=== PATIENT | male | born 1965 | race Asian ===

== ENCOUNTER 2021-01-27 06:44 | Inpatient (IN) | payer SELFPAY ==
[2021-01-27] MEDS ORDERED: IPRATROPIUM 0.02% NEBU 2.5 ML IH ONE (07:36)
[2021-01-27] MEDS ORDERED: ALBUTEROL 2.5 MG/3 ML NEBU IH ONE (07:36)
--- NOTE | 2021-01-27 07:49 | Emergency Department Report ---
HPI - General Time Seen by Provider: 01/27/21 07:19 - HPI HPI: Room 17 The patient is a 56-year-old male present with a chief complaint of shortness of breath. Patient has history of COPD but states he is not on home O2. Patient reportedly developed shortness of breath 1.5 hours prior to arrival and EMS was called. EMS states they arrived on scene to find the patient diaphoretic and hypoxic to 67% on room air. The patient had taken multiple albuterol nebs at home without any improvement. EMS placed patient on CPAP administer albuterol, magnesium sulfate 2 g and Solu-Medrol 125 mg prior to arrival. Patient admits to an occasional cough that is nonproductive. Patient denies history of fever. The patient states he received his first [employer] Covid vaccination 01/23/2021 ED Past Medical Hx - Past Medical History Previous Medical History?: Yes Hx Hypertension: Yes Hx COPD: Yes (No home O2) - Surgical History Additional Surgical History: bilateral rods in femurs - Family History Family history: no significant - Social History Smoking Status: Current Every Day Smoker (1 pack/day) Substance Use Type: None (Denies illicit drug use), Alcohol (Occasional) - Medications Home Medications: Home Medications Medication Instructions Recorded Confirmed Last Taken Type Budesonide [Pulmicort Respules] 0.5 mg IH Q12HRT #1 nebu 12/14/19 Unknown Rx Ipratropium/Albuterol Sulfate 1 ampul IH TIDRT #1 ampul.neb 12/14/19 Unknown Rx [DUONEB *Not for PRN Use*] amLODIPine 10 mg PO DAILY #30 tablet 12/14/19 Unknown Rx hydrALAZINE [Apresoline TAB] 50 mg PO Q8HR #60 tablet 12/14/19 Unknown Rx levoFLOXacin [Levaquin TAB] 750 mg PO Q24HR #7 tablet 12/14/19 Unknown Rx predniSONE 10 mg PO QDAY 1 Days #60 tablet 12/14/19 Unknown Rx ED Review of Systems ROS: Stated complaint: PORSCHE Other details as noted in HPI Constitutional: denies: fever Eyes: denies: eye pain ENT: denies: throat pain Respiratory: cough, shortness of breath Cardiovascular: denies: chest pain Endocrine: no symptoms reported Gastrointestinal: denies: abdominal pain Genitourinary: denies: dysuria Musculoskeletal: denies: back pain Neurological: denies: headache Physical Exam - Physical Exam Physical Exam: GENERAL: The patient is well-developed well-nourished male lying on stretcher not appearing to be in acute distress with CPAP in place. [] HEENT: Normocephalic. Atraumatic. Extraocular motions are intact. Patient has moist mucous membranes. NECK: Supple. Trachea midline CHEST/LUNGS: Diminished throughout. HEART/CARDIOVASCULAR: Regular. There is no tachycardia. There is no gallop rub or murmur. ABDOMEN: Abdomen is soft, nontender. Patient has normal bowel sounds. There is no abdominal distention. SKIN: There is no rash. There is no edema. There is no diaphoresis. NEURO: The patient is awake, alert, and oriented. The patient is cooperative. The patient has no focal neurologic deficits. The patient has normal speech. GCS 15 MUSCULOSKELETAL: There is no evidence of acute injury. ED Medical Decision Making - Lab Data Result diagrams: 01/27/21 08:25 01/27/21 08:25 Laboratory Tests 01/27/21 01/27/21 01/27/21 08:25 08:25 08:25 WBC 12.6 H RBC 4.67 Hgb 14.4 Hct 41.5 MCV 89 MCH 31 MCHC 35 H RDW 14.1 Plt Count 204 Lymph % (Auto) 5.7 L [place] % (Auto) 4.5 Eos % (Auto) 0.8 Baso % (Auto) 0.6 Lymph # (Auto) 0.7 L [place] # (Auto) 0.6 Eos # (Auto) 0.1 Baso # (Auto) 0.1 Seg Neutrophils % 88.4 H Seg Neutrophils # 11.2 H PT 13.5 INR 0.97 Sodium 138 Potassium 3.7 Chloride 95.1 L Carbon Dioxide 26 Anion Gap 21 BUN 12 Creatinine 0.8 Estimated GFR > 60 BUN/Creatinine Ratio 15 Glucose 94 Calcium 9.5 Troponin T 0.017 NT-Pro-B Natriuret Pep 874.3 - Radiology Data Radiology results: report reviewed (Chest x-ray), image reviewed (Chest x-ray) interpreted by me: Chest x-ray-no focal infiltrates, no pneumothorax [facility] [address] [place] [address] XRay Report Signed Patient: ALTAGRACIA PERES MR#: [id number] 30 : 1965 Acct:[id number] Age/Sex: 56 / M ADM Date: 01/27/21 Loc: ED Attending Dr: Ordering Physician: BETHANY SMITH MD Date of Service: 01/27/21 Procedure(s): XR chest 1V ap Accession Number(s): [id number] cc: BETHANY SMITH MD Fluoro Time In Minutes: . XR chest 1V ap INDICATION / CLINICAL INFORMATION: Shortness of breath. COMPARISON: 12/12/2019 FINDINGS: SUPPORT DEVICES: None. HEART /PULMONARY VASCULATURE: No significant abnormality. LUNGS / PLEURA: No significant pulmonary or pleural abnormality. No pneumothorax. ADDITIONAL FINDINGS: No significant additional findings. IMPRESSION: 1. No acute findings. Signer Name: Manohar Moffett MD Signed: 01/27/2021 9:08 AM Workstation Name: [id number] Transcribed By: JS Dictated By: MANOHAR MOFFETT MD Electronically Authenticated By: MANOHAR MOFFETT MD Signed Date/Time: 01/27/21907 DD/ 6 TD/TT: Print Cancel - Differential Diagnosis COPD exacerbation, bronchitis, pneumonia Critical care attestation.: If time is entered above; I have spent that time in minutes in the direct care of this critically ill patient, excluding procedure time. ED Disposition Clinical Impression: COPD exacerbation, Hypoxia Disposition: ADMITTED INPATIENT Is pt being admited?: Yes Does the pt Need Aspirin: Yes Condition: Stable Instructions: Chronic Obstructive Pulmonary Disease (ED) Time of Disposition: 10:15 (Hospitalist notified (Dr Wray))
[2021-01-27] MEDS ORDERED: IPRATROPIUM/ALBUTEROL SULFATE 3 ML AMPUL.NEB IH ONE (08:00)
--- NOTE | 2021-01-27 09:12 | XRay Report ---
. XR chest 1V ap INDICATION / CLINICAL INFORMATION: Shortness of breath. COMPARISON: 12/12/2019 FINDINGS: SUPPORT DEVICES: None. HEART /PULMONARY VASCULATURE: No significant abnormality. LUNGS / PLEURA: No significant pulmonary or pleural abnormality. No pneumothorax. ADDITIONAL FINDINGS: No significant additional findings. IMPRESSION: 1. No acute findings. Signer Name: Se Moffett MD Signed: 01/27/2021 9:08 AM Workstation Name: [id number]
[2021-01-27 09:47] LABS: Basophils # (Auto) 0.1 K/mm3 (0.0-0.1); Basophils % (Auto) 0.6 % (0.0-1.8); Eosinophils # (Auto) 0.1 K/mm3 (0.0-0.4); Eosinophils % (Auto) 0.8 % (0.0-4.3); Hematocrit 41.5 % (35.5-45.6); Hemoglobin 14.4 gm/dl (11.8-15.2); Lymphocytes # (Auto) 0.7 K/mm3 (1.2-5.4); Lymphocytes % (Auto) 5.7 % (13.4-35.0); Mean Corpuscular HGB Conc 35 % (32-34); Mean Corpuscular Volume 89 fl (84-94); Monocytes # (Auto) 0.6 K/mm3 (0.0-0.8); Monocytes % (Auto) 4.5 % (0.0-7.3); Platelet Count 204 K/mm3 (140-440); Red Blood Count 4.67 M/mm3 (3.65-5.03); Red Cell Distribution Width 14.1 % (13.2-15.2)
[2021-01-27 09:55] LABS: BUN/Creatinine Ratio 15; Blood Urea Nitrogen 12 mg/dL (9-20); Calcium 9.5 mg/dL (8.4-10.2); Hemolysis Index 1
[2021-01-27 09:58] LABS: INR 0.97 (0.87-1.13)
[2021-01-27] MEDS ORDERED: ASPIRIN 325 MG TAB PO ONE (10:13)
[2021-01-27 11:26] LABS: ABG Base Excess -2.9 mmol/L (-2.0-3.0); ABG HCO3 21.2 mmol/L (20.0-26.0); ABG Methemoglobin 0.7 % (0.0-1.5); ABG Oxygen Saturation 99.5 % (95.0-99.0); ABG PCO2 35.3 mm Hg; ABG PH 7.397 pH Units (7.350-7.450)
[2021-01-27 11:32] LABS: ABG PO2 294.4 mm Hg (80.0-90.0)
[2021-01-27] MEDS ORDERED: hydrALAZINE 20 MG/1 ML INJ IV ONE (12:24)
--- NOTE | 2021-01-27 13:28 | History and Physical Report ---
History of Present Illness Date of examination: 01/27/21 Date of admission: 01/27/21 10:16 Chief complaint: Worsening shortness of breath, acute hypoxic respiratory failure of 1 day duration History of present illness: 56-year-old -Guyanese male patient with significant past medical history of COPD not on home oxygen hypertension, chronic tobacco use, alcohol use presented to the emergency room with worsening shortness of breath about 1 to 2 hours prior to the EMS was called Patient reports that he took albuterol treatments with no improvement. Patient was severely hypoxemic on room air when EMS arrived saturating 67 to 68% No improvement with multiple nebulizers treatments, placed on CPAP and brought to the emergency room and severe respiratory distress. Patient received first [employer] Covid vaccination on 01/23/2021. Initial evaluation is consistent with severe hypoxic respiratory failure due to COPD exacerbation Chest x-ray no acute abnormality noted, chemistries mild leukocytosis. Patient denies any chest pain, no nausea vomiting or abdominal pain Patient has no home oxygen Past History Past Medical History: COPD, hypertension Past Surgical History: Other (Bilateral femoral surgery with rods) Social history: smoking, full code. denies: alcohol abuse, prescription drug abuse Family history: no significant family history Medications and Allergies Allergies Allergy/AdvReac Type Severity Reaction Status Date / Time No Known Allergies Allergy Verified 12/11/19 20:38 Home Medications Medication Instructions Recorded Confirmed Last Taken Type Budesonide [Pulmicort Respules] 0.5 mg IH Q12HRT #1 nebu 12/14/19 Unknown Rx Ipratropium/Albuterol Sulfate 1 ampul IH TIDRT #1 ampul.neb 12/14/19 Unknown Rx [DUONEB *Not for PRN Use*] amLODIPine 10 mg PO DAILY #30 tablet 12/14/19 Unknown Rx hydrALAZINE [Apresoline TAB] 50 mg PO Q8HR #60 tablet 12/14/19 Unknown Rx levoFLOXacin [Levaquin TAB] 750 mg PO Q24HR #7 tablet 12/14/19 Unknown Rx predniSONE 10 mg PO QDAY 1 Days #60 tablet 12/14/19 Unknown Rx Review of Systems Constitutional: fatigue, weakness Ears, nose, mouth and throat: no nasal congestion, no nasal discharge Cardiovascular: lightheadedness, shortness of breath, no chest pain, no orthopnea Respiratory: shortness of breath, dyspnea on exertion, wheezing Gastrointestinal: no abdominal pain, no nausea, no vomiting Genitourinary Male: no dysuria, no hematuria Musculoskeletal: no myalgias, no arthritis Integumentary: no rash, no lesions Neurological: no seizures, no syncope Psychiatric: no anxiety, no depression Endocrine: no cold intolerance, no heat intolerance Hematologic/Lymphatic: no easy bruising, no easy bleeding Allergic/Immunologic: no urticaria, no allergic rhinitis Exam - Constitutional Vitals: Temp Pulse Resp BP Pulse Ox 98.0 F 94 H 170/121 100 01/27/21 07:46 01/27/21 12:38 01/27/21 12:39 01/27/21 12:38 General appearance: Present: severe distress, well-nourished - EENT Eyes: Present: PERRL, EOM intact - Neck Neck: Present: supple, normal ROM - Respiratory Respiratory effort: normal Respiratory: bilateral: diminished, rhonchi, wheezing, negative: rales - Cardiovascular Rhythm: regular Heart Sounds: Present: S1 & S2 - Extremities Extremities: no ischemia, No edema - Abdominal General gastrointestinal: Present: soft, non-tender, non-distended, normal bowel sounds - Integumentary Integumentary: Present: clear, warm - Musculoskeletal Musculoskeletal: strength equal bilaterally, generalized weakness - Psychiatric Psychiatric: appropriate mood/affect, cooperative - Neurologic Neurologic: moves all extremities HEART Score - HEART Score Troponin: Troponin T 0.017 ng/mL (0.00-0.029) 01/27/21 08:25 Results - Labs CBC & Chem 7: 01/27/21 08:25 01/27/21 08:25 Labs: Abnormal lab results 01/27/21 01/27/21 01/27/21 Range/Units 08:25 08:25 11:15 WBC 12.6 H (4.5-11.0) K/mm3 MCHC 35 H (32-34) % Lymph % (Auto) 5.7 L (13.4-35.0) % Lymph # (Auto) 0.7 L (1.2-5.4) K/mm3 Seg Neutrophils % 88.4 H (40.0-70.0) % Seg Neutrophils # 11.2 H (1.8-7.7) K/mm3 ABG pO2 294.4 H (80.0-90.0) mm Hg ABG O2 Saturation 99.5 H (95.0-99.0) % ABG Base Excess -2.9 L (-2.0-3.0) mmol/L Chloride 95.1 L (98-107) mmol/L Assessment and Plan --Acute COPD exacerbation; Oxygen titrate O2 sats to more than 90% Nebulizers, IV steroids IV antibiotics, inhalation steroids Supportive care Pulmonary consult if needed --Acute hypoxic respiratory failure; Secondary to COPD exacerbation Oxygen titrate O2 sats more than 90% IV steroids, nebulizers, IV antibiotics, inhalation steroids --Hypertension; Moderate control, continue current antihypertensives As needed medications --Ongoing tobacco use; Smoking cessation counseling Nicotine patch as needed --DVT prophylaxis; Lovenox --History of alcohol use; Closely monitor for any withdrawal symptoms CIWA protocols if needed We will closely monitor the patient and adjust the management as needed Plan of care reviewed with the patient and his nurse
[2021-01-27] MEDS ORDERED: ONDANSETRON 4 MG/2 ML INJ IV PRN (13:35)
[2021-01-27] MEDS ORDERED: ACETAMINOPHEN 325 MG TAB PO PRN (13:35)
[2021-01-27] MEDS: hydrALAZINE 25 MG TAB PO SCH ×2 (15:06→22:50)
[2021-01-27] MEDS: methylPREDNISolone Sod Succinate 125 MG/2 ML INJ IV SCH (15:06)
[2021-01-27] MEDS: IPRATROPIUM/ALBUTEROL SULFATE 3 ML AMPUL.NEB IH SCH (16:21)
[2021-01-27] MEDS ORDERED: hydrALAZINE 20 MG/1 ML INJ IV PRN (19:26)
[2021-01-27] MEDS: ENOXAPARIN 40 MG/0.4 ML INJ SUB-Q SCH (22:49)
[2021-01-28] MEDS: IPRATROPIUM/ALBUTEROL SULFATE 3 ML AMPUL.NEB IH SCH ×5 (01:45→20:07)
[2021-01-28] MEDS: BUDESONIDE 0.5 MG/2 ML NEBU IH SCH ×3 (01:46→20:08)
[2021-01-28] MEDS: methylPREDNISolone Sod Succinate 125 MG/2 ML INJ IV SCH ×4 (04:50→22:24)
[2021-01-28] MEDS: NIFEdipine XL 30 MG TAB PO SCH ×3 (04:50→22:24)
[2021-01-28] MEDS: FAMOTIDINE 20 MG TAB PO SCH ×3 (04:51→22:23)
[2021-01-28] MEDS: hydrALAZINE 25 MG TAB PO SCH ×3 (07:25→22:24)
[2021-01-28] MEDS: amLODIPine 10 MG TAB PO SCH (10:41)
--- NOTE | 2021-01-28 16:47 | Progress Note ---
Assessment and Plan Assessment and plan: --Acute on chronic hypoxic respiratory failure; Secondary to COPD exacerbation Patient is home oxygen dependent Oxygen titrate O2 sats more than 90% Tapering IV steroids, nebulizers, IV antibiotics, inhalation steroids Supportive care --Acute COPD exacerbation; Oxygen titrate O2 sats to more than 90% Nebulizers, IV steroids, IV antibiotics, inhalation steroids, Supportive care Pulmonary consult if needed --Hypertension; Moderate control, continue current antihypertensives As needed hydralazine --Ongoing tobacco use; Smoking cessation counseling Nicotine patch as needed --DVT prophylaxis; subcu Lovenox --History of alcohol use; Closely monitor for any withdrawal symptoms CIWA protocols if needed We will closely monitor the patient and adjust the management as needed Plan of care reviewed with the patient and his nurse Brief history; 56-year-old male patient with significant past medical history of COPD hypertension ongoing tobacco use was admitted through emergency room With acute respiratory failure with hypoxia, patient is home oxygen dependent, patient started on nebulizers IV steroids IV antibiotics inhalation steroids and supportive care Symptoms slightly improved today. Ambulate as tolerated, possible discharge home tomorrow if stable Case management to assist with discharge planning History Interval history: I have seen and examined the patient at the bedside patient's chart and medications reviewed patient complains of mild shortness of breath significantly improved since yesterday Hospitalist Physical - Constitutional Vitals: Temp Pulse Resp BP Pulse Ox 98.2 F 108 H 20 154/100 95 01/28/21 07:34 01/28/21 14:25 01/28/21 14:25 01/28/21 07:34 01/28/21 07:56 General appearance: Present: no acute distress, well-nourished - EENT Eyes: Present: PERRL, EOM intact - Neck Neck: Present: supple, normal ROM - Respiratory Respiratory effort: normal Respiratory: bilateral: diminished, negative: rales, rhonchi, wheezing - Cardiovascular Rhythm: regular Heart Sounds: Present: S1 & S2 - Extremities Extremities: no ischemia, No edema - Abdominal General gastrointestinal: soft, non-tender, non-distended, normal bowel sounds - Integumentary Integumentary: Present: clear, warm - Psychiatric Psychiatric: appropriate mood/affect, cooperative - Neurologic Neurologic: CNII-XII intact, moves all extremities HEART Score - HEART Score Troponin: Troponin T 0.017 ng/mL (0.00-0.029) 01/27/21 08:25 Results - Labs CBC & Chem 7: 01/27/21 08:25 01/27/21 08:25 Labs: Laboratory Last Values WBC 12.6 K/mm3 (4.5-11.0) H 01/27/21 08:25 RBC 4.67 M/mm3 (3.65-5.03) 01/27/21 08:25 Hgb 14.4 gm/dl (11.8-15.2) 01/27/21 08:25 Hct 41.5 % (35.5-45.6) 01/27/21 08:25 MCV 89 fl (84-94) 01/27/21 08:25 MCH 31 pg (28-32) 01/27/21 08:25 MCHC 35 % (32-34) H 01/27/21 08:25 RDW 14.1 % (13.2-15.2) 01/27/21 08:25 Plt Count 204 K/mm3 (140-440) 01/27/21 08:25 Lymph % (Auto) 5.7 % (13.4-35.0) L 01/27/21 08:25 [place] % (Auto) 4.5 % (0.0-7.3) 01/27/21 08:25 Eos % (Auto) 0.8 % (0.0-4.3) 01/27/21 08:25 Baso % (Auto) 0.6 % (0.0-1.8) 01/27/21 08:25 Lymph # (Auto) 0.7 K/mm3 (1.2-5.4) L 01/27/21 08:25 [place] # (Auto) 0.6 K/mm3 (0.0-0.8) 01/27/21 08:25 Eos # (Auto) 0.1 K/mm3 (0.0-0.4) 01/27/21 08:25 Baso # (Auto) 0.1 K/mm3 (0.0-0.1) 01/27/21 08:25 Seg Neutrophils % 88.4 % (40.0-70.0) H 01/27/21 08:25 Seg Neutrophils # 11.2 K/mm3 (1.8-7.7) H 01/27/21 08:25 PT 13.5 Sec. (12.2-14.9) 01/27/21 08:25 INR 0.97 (0.87-1.13) 01/27/21 08:25 ABG pH 7.397 pH Units (7.350-7.450) 01/27/21 11:15 ABG pCO2 35.3 mm Hg 01/27/21 11:15 ABG pO2 294.4 mm Hg (80.0-90.0) H 01/27/21 11:15 ABG HCO3 21.2 mmol/L (20.0-26.0) 01/27/21 11:15 ABG O2 Saturation 99.5 % (95.0-99.0) H 01/27/21 11:15 ABG O2 Content 20.4 (0.0-44) 01/27/21 11:15 ABG Base Excess -2.9 mmol/L (-2.0-3.0) L 01/27/21 11:15 ABG Hemoglobin 14.3 gm/dl (14.0-18.0) 01/27/21 11:15 ABG Carboxyhemoglobin 1.1 % (0.0-5.0) 01/27/21 11:15 ABG Methemoglobin 0.7 % (0.0-1.5) 01/27/21 11:15 Oxyhemoglobin 97.8 % (95.0-99.0) 01/27/21 11:15 FiO2 90 % 01/27/21 11:15 Sodium 138 mmol/L (137-145) 01/27/21 08:25 Potassium 3.7 mmol/L (3.6-5.0) 01/27/21 08:25 Chloride 95.1 mmol/L (98-107) L 01/27/21 08:25 Carbon Dioxide 26 mmol/L (22-30) 01/27/21 08:25 Anion Gap 21 mmol/L 01/27/21 08:25 BUN 12 mg/dL (9-20) 01/27/21 08:25 Creatinine 0.8 mg/dL (0.8-1.3) 01/27/21 08:25 Estimated GFR > 60 ml/min 01/27/21 08:25 BUN/Creatinine Ratio 15 % 01/27/21 08:25 Glucose 94 mg/dL (75-100) 01/27/21 08:25 Calcium 9.5 mg/dL (8.4-10.2) 01/27/21 08:25 Troponin T 0.017 ng/mL (0.00-0.029) 01/27/21 08:25 NT-Pro-B Natriuret Pep 874.3 pg/mL (0-900) 01/27/21 08:25 Jorge/IV: Voiding Method Toilet Active Medications - Current Medications Current Medications: Generic Name Dose Route Start Last Admin Trade Name Freq PRN Reason Stop Dose Admin Acetaminophen 650 mg 01/27/21 13:35 Acetaminophen 325 Mg Tab PO Q4H PRN Pain, Mild (1-3) Albuterol/Ipratropium 1 ampul 01/27/21 14:00 01/28/21 14:15 Ipratropium/Albuterol Sulfate 3 Ml Ampul.Neb IH 1 ampul TIDRT SERENA Administration Alprazolam 0.25 mg 01/28/21 16:46 Alprazolam 0.25 Mg Tab PO Q8H PRN Anxiety Amlodipine Besylate 10 mg 01/28/21 10:00 01/28/21 10:41 Amlodipine 10 Mg Tab PO 10 mg DAILY SERENA Administration Budesonide 0.5 mg 01/27/21 20:00 01/28/21 07:52 Budesonide 0.5 Mg/2 Ml Nebu IH 0.5 mg Q12HRT SERENA Administration Enoxaparin Sodium 40 mg 01/27/21 22:00 01/27/21 22:49 Enoxaparin 40 Mg/0.4 Ml Inj SUB-Q 40 mg QDAY@2200 SERENA Administration Protocol Famotidine 20 mg 01/27/21 22:00 01/28/21 10:41 Famotidine 20 Mg Tab PO 20 mg BID SERENA Administration Hydralazine HCl 50 mg 01/27/21 14:00 01/28/21 14:04 Hydralazine 25 Mg Tab PO 50 mg Q8HR SERENA Administration Hydralazine HCl 10 mg 01/27/21 19:26 Hydralazine 20 Mg/1 Ml Inj IV Q4HR PRN Hypertension Levofloxacin/Dextrose 750 mg in 150 mls @ 100 mls/hr 01/27/21 20:00 01/27/21 20:18 Levaquin 750mg/150ml IV 01/31/21 21:29 100 mls/hr Q24H SERENA Administration Protocol Methylprednisolone Sodium Succinate 60 mg 01/27/21 14:00 01/28/21 14:04 Methylprednisolone Sod Succinate 125 Mg/2 Ml Inj IV 60 mg Q8HR SERENA Administration Nifedipine 30 mg 01/27/21 22:00 01/28/21 10:42 Nifedipine Xl 30 Mg Tab PO 30 mg Q12HR SERENA Administration Ondansetron HCl 4 mg 01/27/21 13:35 Ondansetron 4 Mg/2 Ml Inj IV Q4H PRN Nausea And Vomiting Zolpidem Tartrate 5 mg 01/27/21 13:35 Zolpidem 5 Mg Tab PO QHS PRN Sleep
[2021-01-28] MEDS: ENOXAPARIN 40 MG/0.4 ML INJ SUB-Q SCH (22:23)
[2021-01-28] MEDS: ALPRAZolam 0.25 MG TAB PO PRN (22:23)
[2021-01-28] MEDS: ZOLPIDEM 5 MG TAB PO PRN (22:24)
[2021-01-29] MEDS: hydrALAZINE 25 MG TAB PO SCH ×3 (06:37→22:32)
[2021-01-29] MEDS: methylPREDNISolone Sod Succinate 125 MG/2 ML INJ IV SCH ×3 (06:37→22:33)
[2021-01-29] MEDS: BUDESONIDE 0.5 MG/2 ML NEBU IH SCH ×2 (08:02→20:27)
[2021-01-29] MEDS: IPRATROPIUM/ALBUTEROL SULFATE 3 ML AMPUL.NEB IH SCH ×3 (08:05→20:25)
[2021-01-29] MEDS: FAMOTIDINE 20 MG TAB PO SCH ×2 (10:56→22:32)
[2021-01-29] MEDS: NIFEdipine XL 30 MG TAB PO SCH ×2 (10:56→22:32)
[2021-01-29] MEDS: amLODIPine 10 MG TAB PO SCH (10:56)
[2021-01-29] MEDS: ALPRAZolam 0.25 MG TAB PO PRN (15:55)
--- NOTE | 2021-01-29 18:58 | Progress Note ---
Assessment and Plan Assessment and plan: 56-year-old male patient with significant past medical history of COPD hypertension ongoing tobacco use was admitted through emergency room with acute respiratory failure with hypoxia, patient is home oxygen dependent, patient started on nebulizers IV steroids IV antibiotics inhalation steroids and suppo rtive care --Acute on chronic hypoxic respiratory failure; Secondary to COPD exacerbation Patient is home oxygen dependent Oxygen titrate O2 sats more than 90% Tapering IV steroids, nebulizers, IV antibiotics, inhalation steroids Supportive care --Acute COPD exacerbation; Oxygen titrate O2 sats to more than 90% Nebulizers, IV steroids, IV antibiotics, inhalation steroids, Supportive care Pulmonary consult if needed --Hypertension; Moderate control, continue current antihypertensives As needed hydralazine --Ongoing tobacco use; Smoking cessation counseling Nicotine patch as needed --DVT prophylaxis; subcu Lovenox --History of alcohol use; Closely monitor for any withdrawal symptoms CIWA protocols if needed 01/29/: Symptoms continue to improve. Taper steroids. Ambulate as tolerated, possible discharge home tomorrow if stable. We will closely monitor the patient and adjust the management as needed . Plan of care reviewed with the patient History Interval history: pt states that sob and cough better Hospitalist Physical - Constitutional Vitals: Temp Pulse Resp BP Pulse Ox 98.0 F 97 H 18 141/87 97 01/29/21 09:33 01/29/21 17:44 01/29/21 17:44 01/29/21 17:44 01/29/21 17:44 General appearance: Present: no acute distress, well-nourished - EENT Eyes: Present: PERRL ENT: clear oral mucosa - Neck Neck: Present: supple. Absent: masses or JVD - Respiratory Respiratory: bilateral: diminished, wheezing (better) - Cardiovascular Rhythm: regular - Extremities Extremities: No edema - Abdominal General gastrointestinal: soft, non-tender, distended, normal bowel sounds - Integumentary Integumentary: Absent: rash - Psychiatric Psychiatric: appropriate mood/affect - Neurologic Neurologic: no focal deficits HEART Score - HEART Score Troponin: Troponin T 0.017 ng/mL (0.00-0.029) 01/27/21 08:25 Results - Labs CBC & Chem 7: 01/27/21 08:25 01/27/21 08:25 Labs: Laboratory Last Values WBC 12.6 K/mm3 (4.5-11.0) H 01/27/21 08:25 RBC 4.67 M/mm3 (3.65-5.03) 01/27/21 08:25 Hgb 14.4 gm/dl (11.8-15.2) 01/27/21 08:25 Hct 41.5 % (35.5-45.6) 01/27/21 08:25 MCV 89 fl (84-94) 01/27/21 08:25 MCH 31 pg (28-32) 01/27/21 08:25 MCHC 35 % (32-34) H 01/27/21 08:25 RDW 14.1 % (13.2-15.2) 01/27/21 08:25 Plt Count 204 K/mm3 (140-440) 01/27/21 08:25 Lymph % (Auto) 5.7 % (13.4-35.0) L 01/27/21 08:25 [place] % (Auto) 4.5 % (0.0-7.3) 01/27/21 08:25 Eos % (Auto) 0.8 % (0.0-4.3) 01/27/21 08:25 Baso % (Auto) 0.6 % (0.0-1.8) 01/27/21 08:25 Lymph # (Auto) 0.7 K/mm3 (1.2-5.4) L 01/27/21 08:25 [place] # (Auto) 0.6 K/mm3 (0.0-0.8) 01/27/21 08:25 Eos # (Auto) 0.1 K/mm3 (0.0-0.4) 01/27/21 08:25 Baso # (Auto) 0.1 K/mm3 (0.0-0.1) 01/27/21 08:25 Seg Neutrophils % 88.4 % (40.0-70.0) H 01/27/21 08:25 Seg Neutrophils # 11.2 K/mm3 (1.8-7.7) H 01/27/21 08:25 PT 13.5 Sec. (12.2-14.9) 01/27/21 08:25 INR 0.97 (0.87-1.13) 01/27/21 08:25 ABG pH 7.397 pH Units (7.350-7.450) 01/27/21 11:15 ABG pCO2 35.3 mm Hg 01/27/21 11:15 ABG pO2 294.4 mm Hg (80.0-90.0) H 01/27/21 11:15 ABG HCO3 21.2 mmol/L (20.0-26.0) 01/27/21 11:15 ABG O2 Saturation 99.5 % (95.0-99.0) H 01/27/21 11:15 ABG O2 Content 20.4 (0.0-44) 01/27/21 11:15 ABG Base Excess -2.9 mmol/L (-2.0-3.0) L 01/27/21 11:15 ABG Hemoglobin 14.3 gm/dl (14.0-18.0) 01/27/21 11:15 ABG Carboxyhemoglobin 1.1 % (0.0-5.0) 01/27/21 11:15 ABG Methemoglobin 0.7 % (0.0-1.5) 01/27/21 11:15 Oxyhemoglobin 97.8 % (95.0-99.0) 01/27/21 11:15 FiO2 90 % 01/27/21 11:15 Sodium 138 mmol/L (137-145) 01/27/21 08:25 Potassium 3.7 mmol/L (3.6-5.0) 01/27/21 08:25 Chloride 95.1 mmol/L (98-107) L 01/27/21 08:25 Carbon Dioxide 26 mmol/L (22-30) 01/27/21 08:25 Anion Gap 21 mmol/L 01/27/21 08:25 BUN 12 mg/dL (9-20) 01/27/21 08:25 Creatinine 0.8 mg/dL (0.8-1.3) 01/27/21 08:25 Estimated GFR > 60 ml/min 01/27/21 08:25 BUN/Creatinine Ratio 15 % 01/27/21 08:25 Glucose 94 mg/dL (75-100) 01/27/21 08:25 Calcium 9.5 mg/dL (8.4-10.2) 01/27/21 08:25 Troponin T 0.017 ng/mL (0.00-0.029) 01/27/21 08:25 NT-Pro-B Natriuret Pep 874.3 pg/mL (0-900) 01/27/21 08:25 Jorge/IV: Voiding Method Toilet Active Medications - Current Medications Current Medications: Generic Name Dose Route Start Last Admin Trade Name Freq PRN Reason Stop Dose Admin Acetaminophen 650 mg 01/27/21 13:35 Acetaminophen 325 Mg Tab PO Q4H PRN Pain, Mild (1-3) Albuterol/Ipratropium 1 ampul 01/27/21 14:00 01/29/21 15:16 Ipratropium/Albuterol Sulfate 3 Ml Ampul.Neb IH 1 ampul TIDRT SERENA Administration Alprazolam 0.25 mg 01/28/21 17:00 01/29/21 15:55 Alprazolam 0.25 Mg Tab PO 0.25 mg Q8H PRN Administration Anxiety Amlodipine Besylate 10 mg 01/28/21 10:00 01/29/21 10:56 Amlodipine 10 Mg Tab PO 10 mg DAILY SERENA Administration Budesonide 0.5 mg 01/27/21 20:00 01/29/21 08:02 Budesonide 0.5 Mg/2 Ml Nebu IH Not Given Q12HRT SERENA Enoxaparin Sodium 40 mg 01/27/21 22:00 01/28/21 22:23 Enoxaparin 40 Mg/0.4 Ml Inj SUB-Q 40 mg QDAY@2200 SERENA Administration Protocol Famotidine 20 mg 01/27/21 22:00 01/29/21 10:56 Famotidine 20 Mg Tab PO 20 mg BID SERENA Administration Hydralazine HCl 50 mg 01/27/21 14:00 01/29/21 13:52 Hydralazine 25 Mg Tab PO 50 mg Q8HR SERENA Administration Hydralazine HCl 10 mg 01/27/21 19:26 01/29/21 15:54 Hydralazine 20 Mg/1 Ml Inj IV 10 mg Q4HR PRN Administration Hypertension Levofloxacin/Dextrose 750 mg in 150 mls @ 100 mls/hr 01/27/21 20:00 01/28/21 22:41 Levaquin 750mg/150ml IV 01/31/21 21:29 100 mls/hr Q24H SERENA Administration Protocol Methylprednisolone Sodium Succinate 60 mg 01/27/21 14:00 01/29/21 13:52 Methylprednisolone Sod Succinate 125 Mg/2 Ml Inj IV 60 mg Q8HR SERENA Administration Nifedipine 30 mg 01/27/21 22:00 01/29/21 10:56 Nifedipine Xl 30 Mg Tab PO 30 mg Q12HR SERENA Administration Ondansetron HCl 4 mg 01/27/21 13:35 Ondansetron 4 Mg/2 Ml Inj IV Q4H PRN Nausea And Vomiting Zolpidem Tartrate 5 mg 01/27/21 13:35 01/28/21 22:24 Zolpidem 5 Mg Tab PO 5 mg QHS PRN Administration Sleep
[2021-01-29] MEDS: ZOLPIDEM 5 MG TAB PO PRN (22:32)
[2021-01-29] MEDS: ENOXAPARIN 40 MG/0.4 ML INJ SUB-Q SCH (22:33)
[2021-01-30] MEDS: methylPREDNISolone Sod Succinate 125 MG/2 ML INJ IV SCH ×2 (05:25→18:09)
[2021-01-30] MEDS: hydrALAZINE 25 MG TAB PO SCH ×2 (05:25→18:09)
[2021-01-30] MEDS: IPRATROPIUM/ALBUTEROL SULFATE 3 ML AMPUL.NEB IH SCH ×2 (08:46→17:38)
[2021-01-30] MEDS: BUDESONIDE 0.5 MG/2 ML NEBU IH SCH (08:46)
[2021-01-30] MEDS: amLODIPine 10 MG TAB PO SCH (11:30)
[2021-01-30] MEDS: NIFEdipine XL 30 MG TAB PO SCH (11:30)
[2021-01-30] MEDS: FAMOTIDINE 20 MG TAB PO SCH (11:30)
--- NOTE | 2021-01-30 16:36 | Discharge Summary ---
Providers - Providers Date of Admission: 01/27/21 11:22 Date of discharge: 01/30/21 Attending physician: VIVI BARNETT MD Primary care physician: SATURNINO STEPHENS MD Hospitalization Condition: Stable Disposition: 01 HOME / SELF CARE / HOMELESS Exam - Constitutional Vitals: Temp Pulse Resp BP Pulse Ox 98.7 F 94 H 18 164/105 97 01/30/21 12:38 01/30/21 12:38 01/30/21 12:38 01/30/21 12:38 01/30/21 12:38 General appearance: Present: no acute distress - EENT Eyes: Present: PERRL - Neck Neck: Present: supple - Respiratory Respiratory effort: normal Respiratory: bilateral: diminished - Cardiovascular Rhythm: regular - Extremities Extremities: No edema - Abdominal General gastrointestinal: Present: soft, non-tender, non-distended - Psychiatric Psychiatric: appropriate mood/affect - Neurologic Neurologic: moves all extremities Plan Activity: advance as tolerated Weight Bearing Status: Full Weight Bearing Diet: low fat, low salt Follow up with: PRIMARY CAREMD [Primary Care Provider] - 3-5 Days Prescriptions: carvediloL [Coreg] 3.125 mg PO BID #60 tablet predniSONE [Deltasone] 40 mg PO QDAY #10 tab Azithromycin [Zithromax TAB] 250 mg PO QDAY #7 tablet
[2021-01-30 17:49] VITALS: BP 158/104
== END 2021-01-30 18:46 | disposition home or self-care (01) | DRG 189 ==
LOC: ED 06:44 → 4A 10:16 → OBSVTOIN 11:22 → 4A 21:04
PROVIDERS: ADMIT Internal Medicine; ATTEND Internal Medicine
PROC: 4A033R1 Measurement of Arterial Saturation, Peripheral, Percutaneous Approach (ICD-10-PCS; principal; 2021-01-27)
PROC: 5A09357 Assistance with Respiratory Ventilation, Less than 24 Consecutive Hours, Continuous Positive Airway Pressure (ICD-10-PCS; 2021-01-27)
DX: J96.21 Acute and chronic respiratory failure with hypoxia (principal); J44.1 Chronic obstructive pulmonary disease with (acute) exacerbation; I10 Essential (primary) hypertension; F17.200 Nicotine dependence, unspecified, uncomplicated; Z71.6 Tobacco abuse counseling
CPT/HCPCS: 36415; 36600; 71045; 80048; 82803; 83880; 84484; 85025; 85610; 94640; 94644; 94760; 96374; G0378; J0360; J1650; J1956; J2930

== ENCOUNTER 2021-03-21 22:23 | Emergency (ER) | payer SELFPAY ==
[2021-03-21] MEDS ORDERED: THIAMINE 100 MG, FOLIC ACID 1 MG, MULTIPLE VITAMIN INJ, ADULT 10 ML in SODIUM CHLORIDE ... IV ONE (22:59)
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
[2021-03-21] MEDS: SODIUM CHLORIDE 0.9% 1000 ML 1,000 ML IV ONE (23:20)
[2021-03-21 23:53] LABS: Alanine Aminotransferase 94 units/L (7-56); Albumin 3.5 g/dL (3.9-5); BUN/Creatinine Ratio 11; Blood Urea Nitrogen 9 mg/dL (9-20); Hemolysis Index 27
[2021-03-22 00:01] LABS: Basophils # (Auto) 0.2 K/mm3 (0.0-0.1); Eosinophils # (Auto) 0.2 K/mm3 (0.0-0.4); Eosinophils % (Auto) 3.3 % (0.0-4.3); Hemoglobin 13.6 gm/dl (11.8-15.2); Lymphocytes # (Auto) 2.3 K/mm3 (1.2-5.4); Lymphocytes % (Auto) 31.1 % (13.4-35.0); Mean Corpuscular HGB Conc 35 % (32-34); Mean Corpuscular Volume 89 fl (84-94); Monocytes % (Auto) 12.9 % (0.0-7.3); Platelet Count 289 K/mm3 (140-440); Red Blood Count 4.36 M/mm3 (3.65-5.03); Red Cell Distribution Width 13.9 % (13.2-15.2)
--- NOTE | 2021-03-22 00:11 | Cat Scan Report ---
CT HEAD WITHOUT CONTRAST INDICATION / CLINICAL INFORMATION: Alcohol Intoxication, loc. head injury. TECHNIQUE: All CT scans at this location are performed using CT dose reduction for ALARA by means of automated e xposure control. COMPARISON: None available. FINDINGS: No acute intracranial hemorrhage. Ventricles are normal in size without midline shift or mass effect. There is left periorbital soft tissue hematoma and swelling. Orbital globes are intact. No definite evidence for acute ischemic change ADDITIONAL FINDINGS: None. IMPRESSION: 1. Left periorbital soft tissue swelling. Signer Name: Andrea Lockett MD Signed: 03/22/2021 12:07 AM Workstation Name: [id number]
--- NOTE | 2021-03-22 00:18 | Cat Scan Report ---
CT facial bones wo con INDICATION / CLINICAL INFORMATION: facial trauma.. TECHNIQUE: Axial, coronal and sagittal images All CT scans at this location are performed using CT dose reductio n for ALARA by means of automated exposure control. COMPARISON: None available. FINDINGS: There is left periorbital soft tissue swelling. Orbital globes appear intact. Orbital sanders appear in tact. No fluid levels are seen in the sinuses. Zygomatic arches appear normal. Mandible appears intac t. Skull base appears normal. IMPRESSION: 1. Left periorbital soft tissue swelling. No acute fracture is definitely seen. Signer Name: Andrea Lockett MD Signed: 03/22/2021 12:14 AM Workstation Name: [id number]
[2021-03-22] MEDS ORDERED: ACETAMINOPHEN 500 MG TAB PO ONE (03:12)
[2021-03-22] MEDS ORDERED: IPRATROPIUM/ALBUTEROL SULFATE 3 ML AMPUL.NEB IH ONE (04:04)
[2021-03-22] MEDS ORDERED: SODIUM CHLORIDE 0.9% 1000 ML 1,000 ML ONE (07:28)
[2021-03-22] MEDS: SODIUM CHLORIDE 0.9% 1000 ML 1,000 ML IV ONE (07:49)
[2021-03-22 08:04] VITALS: BP 160/103
== END 2021-03-22 12:33 | disposition home or self-care (01) ==
LOC: ED 22:23
DX: S00.83XA Contusion of other part of head, initial encounter (principal); S00.81XA Abrasion of other part of head, initial encounter; G44.319 Acute post-traumatic headache, not intractable; S09.90XA Unspecified injury of head, initial encounter; R55 Syncope and collapse; F10.929 Alcohol use, unspecified with intoxication, unspecified; I10 Essential (primary) hypertension; F17.200 Nicotine dependence, unspecified, uncomplicated; W19.XXXA Unspecified fall, initial encounter; Y93.89 Activity, other specified; Y92.89 Other specified places as the place of occurrence of the external cause; Y99.8 Other external cause status
CPT/HCPCS: 36415; 70450; 70486; 80053; 85025; 94644; 96361; 96365; 96366; 99285; J3411; J7030; 80320; G0480

== ENCOUNTER 2021-08-03 00:50 | Emergency (ER) | payer SELFPAY ==
[2021-08-03] MEDS ORDERED: ONDANSETRON 4 MG/2 ML INJ IV ONE (01:16)
[2021-08-03] MEDS ORDERED: TETANUS,DIPH,PERTUSS(ACELL) VACCINE 0.5 ML SYRINGE IM ONE (01:16)
[2021-08-03] MEDS ORDERED: fentaNYL 100 MCG/2 ML INJ IV ONE (01:16)
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
[2021-08-03 02:35] LABS: Amphetamine Screen,Urine PRESUMPTIVE NEGATIVE; Benzodiazepines Screen,Urine PRESUMPTIVE NEGATIVE; Cannabinoid Screen,Urine PRESUMPTIVE NEGATIVE; Cocaine Screen,Urine PRESUMPTIVE NEGATIVE; Methadone Screen,Urine PRESUMPTIVE NEGATIVE; Opiate Screen,Urine PRESUMPTIVE NEGATIVE
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
[2021-08-03 03:28] LABS: Mucus,Urine FEW /HPF
[2021-08-03 03:29] LABS: Bilirubin,Urine NEG (Negative); Blood,Urine MOD (Negative); Color,Urine Yellow (Yellow); Urobilinogen,Urine < 2.0 mg/dL (<2.0)
[2021-08-03 04:06] VITALS: BP 130/72
== END 2021-08-03 04:07 | disposition home or self-care (01) ==
LOC: ED 00:50
DX: S02.2XXA Fracture of nasal bones, initial encounter for closed fracture (principal); R51.9 Headache, unspecified; R11.2 Nausea with vomiting, unspecified; I10 Essential (primary) hypertension; J45.909 Unspecified asthma, uncomplicated; J44.9 Chronic obstructive pulmonary disease, unspecified; F17.210 Nicotine dependence, cigarettes, uncomplicated; Z79.899 Other long term (current) drug therapy; Z72.89 Other problems related to lifestyle; Y08.89XA Assault by other specified means, initial encounter; Y93.89 Activity, other specified; Y92.89 Other specified places as the place of occurrence of the external cause; Y99.8 Other external cause status
CPT/HCPCS: 70450; 70486; 72125; 80307; 81001; 99284